=== PATIENT | male | born 1990 | race Caucasian/White ===

== ENCOUNTER → 2025-04-02 14:14 | Outpatient (CLI) | payer OTHER, SELFPAY ==
--- NOTE | 2025-04-02 14:16 | DI.RAD.S_ITS ---
PROCEDURE: XR FOOT LT MIN 3V INDICATIONS: Twisted foot, pain on dorsal side TECHNIQUE: 3 views of the foot were acquired. COMPARISON: None. FINDINGS: Bones: No fractures or dislocations. No suspicious bony lesions. Soft tissues: No tibiotalar joint effusion. Achilles tendon appears normal. IMPRESSION: No displaced fracture is seen on these plain films. Dictated by: Phillip To M.D. on 04/02/2025 at 13:35 Approved by: Phillip To M.D. on 04/02/2025 at 13:35
== END ==
PROVIDERS: Referring Provider Nurse Practitioner Family; Visit Provider Nurse Practitioner Family
DX: S99.929A Unspecified injury of unspecified foot, initial encounter (principal)
CPT/HCPCS: 73630